=== PATIENT | female | born 2000 | race Caucasian/White ===

== ENCOUNTER 2019-01-28 14:26 | Emergency (ER) | payer OTHER ==
[2019-01-28 15:02] LABS: URINE APPEARANCE CLEAR; URINE BILIRUBIN NEGATIVE (NEGATIVE); URINE BLOOD NEGATIVE (NEGATIVE); URINE COLOR YELLOW; URINE GLUCOSE (UA) NEGATIVE (NEGATIVE); URINE KETONE NEGATIVE (NEGATIVE); URINE LEUKOCYTE ESTERASE NEGATIVE (NEGATIVE); URINE NITRITE NEGATIVE (NEGATIVE); URINE PROTEIN NEGATIVE (NEGATIVE); URINE UROBILINOGEN 0.2 E.U./dL (0.20 - 1.00)
[2019-01-28] MEDS ORDERED: ACETAMINOPHEN 1,000 MG/100 ML BTL IVPB ONE (15:14)
[2019-01-28] MEDS ORDERED: 0.9 % SODIUM CHLORIDE 1,000 ML BAG IV ONE (15:14)
--- NOTE | 2019-01-28 15:30 | Emergency Department Record ---
History of Present Illness - General Chief complaint: Flank Pain Stated complaint: FLANK PAIN,LOWER RT ABN Time Seen by Provider: 01/28/19 14:30 Source: Patient, Family Mode of Arrival: Ambulatory Limitations: No limitations - History of Present Illness Initial comments: The patient is here due to having R flank and back pain for 3 days. The patient has been ill off and on for 2 weeks. She recently was treated for a sinus infection and possible Strep throat. The patient did develop significant R flank pain a few days ago and did go to [facility] for it on Saturday. She did receive lab work and a chest xray and was told everything was normal. Since her R flank pain has worsened. The pain now is fleeting over both sides of her back but worse over the R flank. The patient also has had intermittent AP, nausea, and headaches but no fevers, ST, neck pain or visual changes. The patient also went to a health center 2 weeks ago at the start of the illness and had a neg [facility] test. MD Complaint: Other Onset/Timin -: Week(s) Radiation: R flank Severity scale (1-10): 7 Improves with: None Worsens with: None Patient : No Associated Symptoms: Denies other symptoms - Related Data Home Medications Medication Instructions Recorded Confirmed Last Taken Cetirizine HCl [Zyrtec] 10 mg PO DAILY 01/28/19 01/28/19 01/28/19 Diphenhydramine HCl [Benadryl] 50 mg PO QHS 01/28/19 01/28/19 01/27/19 Ethinyl Estradiol/Drospirenone 1 each PO DAILY 01/28/19 01/28/19 01/27/19 [Drospirenone-Ee 3-0.02 mg Tab] Methylphenidate HCl [Concerta] 54 mg PO DAILY 01/28/19 01/28/19 01/28/19 Previous Rx's Medication Instructions Recorded Naproxen [Naprosyn] 500 mg PO BID #14 tablet. 01/28/19 Allergies Allergy/AdvReac Type Severity Reaction Status Date / Time No Known Drug Allergies Allergy Verified 01/28/19 14:44 Travel Screening - Travel/Exposure Within Last 30 Days Have you traveled within the last 30 days?: Yes Location Detail:: [place] - Travel/Exposure Within Last Year Have you traveled outside the [place] in the last year?: No - Additonal Travel Details Have you been exposed to anyone with a communicable illness?: Yes Exposure Details:: sorirty house- others sick. - Travel Symptoms Symptom Screening: Joint & Muscle Aches Review of Systems Constitutional: Reports: Malaise. Denies: Chills, Fever Eyes: Denies: Eye discharge ENT: Denies: Congestion Respiratory: Reports: Cough. Denies: Dyspnea Cardiovascular: Denies: Arrhythmia Endocrine: Reports: Fatigue Gastrointestinal: Reports: Nausea Genitourinary: Denies: Dysuria Musculoskeletal: Denies: Arthralgia Skin: Denies: Bruising Past Medical History - SOCIAL HISTORY Smoking Status: Never smoker Alcohol Use: Occasional Drug Use: None - RESPIRATORY Hx Respiratory Disorders: Yes Hx Bronchitis: Yes Comment:: URI - CARDIOVASCULAR Hx Cardio Disorders: Yes Hx Palpitations: Yes - NEURO Hx Neuro Disorders: Yes Hx Headaches: Yes - GI Hx GI Disorders: No - Hx Genitourinary Disorders: No - ENDOCRINE Hx Endocrine Disorders: No - MUSCULOSKELETAL Hx Musculoskeletal Disorders: No - PSYCH Hx Psych Problems: No - HEMATOLOGY/ONCOLOGY Hx Hematology/Oncology Disorders: No Family Medical History Any Significant Family History?: No Physical Exam - General General Appearance: Alert, Oriented x3, Cooperative, No acute distress (The patient is very cooperative and nontoxic in no distress.) - Head Head exam: Atraumatic, Normocephalic, Normal inspection - Eye Eye exam: Normal appearance, PERRL, EOMI. negative: Conjunctival injection - ENT Throat exam: Normal inspection. negative: Tonsillar erythema, Tonsillar exudate - Neck Neck exam: Normal inspection, Full ROM. negative: Meningismus (The neck is very supple.), Tenderness - Respiratory Respiratory exam: Normal lung sounds bilaterally. negative: Respiratory distress - Cardiovascular Cardiovascular Exam: Regular rate, Normal rhythm, Normal heart sounds - GI/Abdominal GI/Abdominal exam: Soft, Normal bowel sounds. negative: Rebound, Rigid, Tenderness - Extremities Extremities exam: Normal inspection, Full ROM, Normal capillary refill. negative: Tenderness - Back Back exam: Reports: Paraspinal tenderness (R upper lumbar.). Denies: CVA tenderness (R), CVA tenderness (L), Vertebral tenderness Image of Body Front/Back: 1 - Area of pain and reproducible tenderness. - Neurological Neurological exam: Alert, Normal gait. negative: Abnormal gait, Motor sensory deficit - Skin Skin exam: negative: Rash Course Vital Signs 01/28/19 14:28 Temperature 98.3 F Pulse Rate 117 H Respiratory 16 Rate Blood Pressure 130/79 Pulse Ox 99 - Reevaluation(s) Reevaluation #1: The patient is doing very well at this time. I did discuss the normal lab tests, CT scan and US. The US does possibly demonstrate a positive Perez's sign but no other signs of gallbladder dz so the patient is to see her PCP to possibly order a HB scan as an outpatient. The patient and mom do understand and will comply. 01/28/19 17:50 Medical Decision Making - Data Complexity MDM Data: Labs Ordered and/or Reviewed, X-Ray Ordered and/or Reviewed - Lab Data Result diagrams: 01/28/19 15:24 01/28/19 15:24 Lab Results 01/28/19 Range/Units 14:50 Urine Color Yellow Urine Appearance Clear Urine pH 6.5 (5.0-8.0) Ur Specific [place] <= 1.005 (1.002-1.030) Urine Protein Negative (NEGATIVE) Urine Glucose (UA) Negative (NEGATIVE) Urine Ketones Negative (NEGATIVE) Urine Blood Negative (NEGATIVE) Urine Nitrite Negative (NEGATIVE) Urine Bilirubin Negative (NEGATIVE) Urine Urobilinogen 0.2 (0.20 - 1.00) E.U./dL Ur Leukocyte Esterase Negative (NEGATIVE) - Radiology Data Radiology results: Report reviewed (CT: Neg for any acute process.) Disposition Disposition: Discharge Clinical Impression: Acute viral syndrome Disposition: Home, Self-Care Condition: (2) Stable Instructions: Viral Syndrome (ED) Additional Instructions: Please drink plenty of fluids and use the Naprosyn for pain. Please see your doctor next week if not better. Return to the ER for any worsening symptoms. Prescriptions: Naproxen [Naprosyn] 500 mg PO BID #14 tablet.dr Forms: Patient Portal Access Time of Disposition: 17:52 Quality - Quality Measures Quality Measures: N/A - Blood Pressure Screening View Details: Yes Does Patient Have Any of the Following: No Blood Pressure Classification: Pre-Hypertensive BP Reading Systolic Measurement: 115 Diastolic Measurement: 80 Screening for High Blood Pressure: < Pre-Hypertensive BP, F/U Documented > [G8950] Pre-Hypertensive Follow-up Interventions: Referral to alternative/primary care provider.
[2019-01-28 15:35] LABS: ABSOLUTE NEUTROPHIL COUNT 8.81; BASO % 0.2 % (0-6); EOS % 0.2 % (0-6); HEMATOCRIT 42.8 % (35.0-47.0); HEMOGLOBIN 13.6 gm/dl (11.6-16.0); LYMPH % 23.9 % (16-45); MEAN CELL VOLUME 85.3 fl (81-97); MEAN CORPUSCULAR HEMOGLOBIN 27.1 pg (27-33); MEAN CORPUSCULAR HGB CONC 31.8 g/dl (32-36); MEAN PLATELET VOLUME 8.2 fl (7.4-10.4); MONO % 3.7 % (0-9); PLATELET COUNT 477 K/uL (130-400); RED BLOOD COUNT 5.02 M/uL (3.80-5.40); RED CELL DISTRIBUTION WIDTH 13.9 % (11.5-14.5); WHITE BLOOD COUNT W/O DIFF 12.3 K/uL (4.2-12.2)
[2019-01-28 15:44] LABS: BLOOD UREA NITROGEN 12 mg/dL (6-20)
[2019-01-28 15:45] LABS: CREATININE 0.6 mg/dL (0.5-0.9); LIPASE 26 U/L (13-60); TOTAL PROTEIN 7.2 g/dL (6.6-8.7)
[2019-01-28 15:47] LABS: GLUCOSE,RANDOM 83 mg/dL (74-109)
[2019-01-28 15:50] LABS: ALBUMIN 4.4 g/dL (4.0-5.0); ALKALINE PHOSPHATASE 52 U/L (35-104); ALT/SGPT 12 U/L (<33); AST/SGOT 13 U/L (10.0-35.0); C-REACTIVE PROTEIN 0.51 mg/dL (<0.5)
[2019-01-28 15:51] LABS: BILIRUBIN,DIRECT < 0.2 mg/dL (0-0.3)
[2019-01-28] MEDS ORDERED: KETOROLAC 30 MG/ML VIAL IVP ONE (16:16)
--- NOTE | 2019-01-28 16:20 | CT SCAN REPORT ---
EXAMINATION: CT Abdomen and Pelvis without IV Contrast EXAM DATE: 01/28/2019 3:58 PM TECHNIQUE: Standard protocol CT imaging of the abdomen and pelvis was performed without intravenous c ontrast. INDICATION: R flank pain COMPARISON: None ENCOUNTER: Not applicable CT ABDOMEN AND PELVIS FINDINGS: Lung Bases: Included extent of the lung bases are clear. Hepatobiliary: The liver has a normal size with a smooth surface. Pancreas: The pancreas is normal. Spleen: The spleen is not enlarged. Adrenals: The adrenal glands are normal. Gastrointestinal: The stomach and small bowel are normal with no obstruction or inflammation. No CT s igns of acute appendicitis. The large bowel is within normal limits. Reproductive Organs: Unremarkable Lymphatic System: There is no adenopathy within the abdomen or pelvis. Vasculature: Normal caliber abdominal aorta Peritoneum: No free fluid, free air, or inflammation Assessment of the solid organs, soft tissues, and vascular structures is overall limited on noncontra st imaging, IMPRESSION: 1. 2 mm nonobstructive stone in the interpolar right kidney. 2. No hydroureteronephrosis. 3. Normal CT appearance of the appendix. Dictated by: Abhijit oHdges on 01/28/2019 4:11 PM. .
--- NOTE | 2019-01-28 17:46 | ULTRASOUND REPORT ---
EXAMINATION: Ultrasound Abdomen Limited EXAM DATE: 01/28/2019 5:03 PM TECHNIQUE: Ultrasound of the abdomen was performed. INDICATION: RUQ pain COMPARISON: AP CT 01/28/2019 FINDINGS: Liver normal echotexture. No focal mass. No gallstones. No wall thickening or pericholecystic fluid. Sonographic positive Perez sign. CBD 1.9 cm. Visualized portions of the pancreas abdominal aorta IVC unremarkable. Mild right pelvocaliectasis. IMPRESSION: 1. No gallstones wall thickening or pericholecystic fluid. CBD 1.9 cm. Sonographic positive Perez si gn. Follow-up hepatobiliary scan as clinically directed 2. Mild right pelvocaliectasis Dictated by: Artemio Pérez MD on 01/28/2019 5:38 PM. .
== END 2019-01-28 18:06 | disposition home or self-care (01) ==
LOC: ER 14:26
DX: B34.9 Viral infection, unspecified (principal); M54.6 Pain in thoracic spine; R10.11 Right upper quadrant pain
CPT/HCPCS: 99284 ×2; 82550; 83690; 85025; 80076; 86140; 80048; 81003; 81025; 86308; 76705; 74176; J1885; J7030